=== PATIENT | male | born 1970 | race Caucasian/White ===

== ENCOUNTER → 2020-02-13 | Outpatient (CLI) | payer BC ==
[2020-02-14 08:47] VITALS: BMI 23.4
== END | disposition home or self-care (01) ==
LOC: DBWHC3 14:51
PROVIDERS: ATTEND Internal Medicine
DX: E10.9 Type 1 diabetes mellitus without complications (principal); K90.0 Celiac disease
CPT/HCPCS: 97802

== ENCOUNTER 2020-05-18 09:48 | Day surgery (SDC) | payer BC ==
[2020-05-17 08:50] VITALS: BMI 25.0
[~2020-05-18 09:48] MED LIST: LACTATED RINGERS 1,000 ML IV SCH
[2020-05-18] MEDS ORDERED: LIDOCAINE 1% (10MG/ML) FOR IV START INTRADERMA ONE (10:34)
[2020-05-18 10:35] LABS: Glucose,Whole Blood 180 mg/dL (75-99)
[2020-05-18 10:37] VITALS: RESP 16; TEMP 97.6
[2020-05-18] MEDS ORDERED: LIDOCAINE 1% INJ 10MG/ML (20 ML MDV) ONE (11:01)
[2020-05-18] MEDS ORDERED: PROPOFOL 10 MG/ML 20 ML VIAL IV ONE (11:01)
--- NOTE | 2020-05-18 11:29 | P.PCN ---
Date of Procedure: 05/18/20 Procedure(s) Performed: Brief history: Patient is a pleasant 49-year-old white male scheduled for an elective upper endoscopy as well as colonoscopy as a part of evaluation of positive serologies for celiac disease and screening for colorectal neoplasia. Patient stated lost 40 pounds in the last few months and hence had some labs done which revealed positive celiac serology. He has been on a gluten-free diet for 3 months. Procedure performed: Esophagogastroduodenoscopy with biopsy Colonoscopy Preoperative diagnosis: Positive serologies for celiac disease Screening for colon cancer Anesthesia: MAC Procedure: After informed consent was obtained from the patient was brought into the endoscopy unit and IV sedation was administered by anesthesia under continuous monitoring. Initially upper endoscopy was done. The Olympus GF 160 video endoscope was inserted inserted into the mouth and esophagus intubated without any difficulty and was gradually advanced into the stomach and duodenum and carefully examined. The bulb and second part of the duodenum appeared normal. There was some decreased folds in the duodenum and multiple biopsies were done from this area to evaluate for celiac disease. The scope was then withdrawn into the stomach adequately insufflated with air and upon careful examination the antrum and mild gastritis and biopsies were done from this area. The body, cardia and fundus appeared normal. The scope was then withdrawn into the esophagus. The GE junction was located at 40 cm to the incisors. It appeared regular with no erythema erosions or ulcerations. Rest of the esophagus appeared normal. Patient tolerated the procedure well. At this time the patient continued to remain sedation. Initial digital rectal examination was normal. Olympus CF 160 video colonoscope was then inserted into the rectum and gradually advanced to the cecum without any difficulty. Careful examination was performed as the scope was gradually being withdrawn. The prep was oral in some areas of the colon.. The cecum, ascending colon, transverse colon, descending colon, sigmoid colon and rectum appeared normal. Retroflexion was performed in the rectum and no lesions were noted. Patient tolerated the procedure well. Impression: 1. Upper endoscopy revealed mild gastritis and possibly of the duodenal folds status post multiple biopsies to evaluate for celiac disease 2. Colonoscopy was essentially within normal limits with no evidence of colitis or colorectal neoplasia Recommendations: Findings of this examination were discussed with the patient as well as his family. He was advised to follow with the biopsy results. Have a repeat screening colonoscopy in 10 years.
[2020-05-18 11:55] VITALS: BP 159/79; PULSE 62
== END 2020-05-18 12:05 | disposition home or self-care (01) ==
LOC: ORWHC2ENDO 09:48
PROVIDERS: ATTEND Internal Medicine Gastroenterology
DX: Z12.11 Encounter for screening for malignant neoplasm of colon (principal); K29.50 Unspecified chronic gastritis without bleeding; R76.8 Other specified abnormal immunological findings in serum; R63.4 Abnormal weight loss; E11.9 Type 2 diabetes mellitus without complications; K08.89 Other specified disorders of teeth and supporting structures; I25.2 Old myocardial infarction; I25.10 Atherosclerotic heart disease of native coronary artery without angina pectoris; Z68.24 Body mass index [BMI] 24.0-24.9, adult; Z79.4 Long term (current) use of insulin; Z79.899 Other long term (current) drug therapy; Z79.02 Long term (current) use of antithrombotics/antiplatelets; Z79.82 Long term (current) use of aspirin; Z79.891 Long term (current) use of opiate analgesic
CPT/HCPCS: 43239; G0121; J2001; J2704; 88305; 88342